=== PATIENT | female | born 1995 | race African-American/Black ===

== ENCOUNTER 2020-03-17 19:42 | Emergency (ER) | payer SELFPAY ==
[~2020-03-17] VITALS: Ht 172.7 cm; Wt 53.0 kg
[2020-03-17 20:03] VITALS: BP 106/60
[2020-03-17] MEDS ORDERED: ACETAMINOPHEN 325MG TABLET PO ONE (21:15)
== END 2020-03-17 21:22 | disposition home or self-care (01) ==
LOC: ER 19:42
DX: M25.512 Pain in left shoulder (principal); M79.89 Other specified soft tissue disorders; V49.49XA Driver injured in collision with other motor vehicles in traffic accident, initial encounter; Y93.89 Activity, other specified; Y92.89 Other specified places as the place of occurrence of the external cause; Y99.8 Other external cause status
CPT/HCPCS: 99282